=== PATIENT | male | born 1965 | race Caucasian/White ===

== ENCOUNTER 2019-02-08 23:01 | Emergency (ER) | payer OTHER ==
[~2019-02-08] VITALS: Ht 177.8 cm; Wt 108.9 kg
[2019-02-08 23:05] VITALS: BP 140/89
[2019-02-08] MEDS ORDERED: LIDOCAINE 2%/EPI 1:100,000 20 ML VIAL. IJ ONE (23:45)
[2019-02-08] MEDS ORDERED: NEOMY/BACITR/POLYMYXIN OINT PACKET. TP ONE (23:45)
[2019-02-08] MEDS ORDERED: DIPHTH,PERTUSS(ACELL),TET TOX 0.5 ML DISP.SYRIN. VAX IM ONE (23:45)
--- NOTE | 2019-02-08 23:45 | PHYS DOC ---
Adult General Chief Complaint Chief Complaint: MECHANICAL FALL HPI HPI Patient is a 53 year old male that presents with a laceration. Patient states this evening around 10:00 he went outside because he is having a coughing spell. During this coughing spell he started becoming lightheaded and dizzy proceeded to pass out. Upon passing out. His head on his deck. Patient's son heard him fall and went outside and noticed his dad had a episode lost consciousness. This episode lasted about 1 minute until his dad was able to answer questions appropriately. Currently the patient denies any pain at this time. He states this is happened in the past but is never needed to be checked out because he didn't have any lacerations previously. He currently denies any chest pain, shortness of breath, lightheadedness, dizziness or focal neurological deficits.[] Review of Systems Review of Systems Constitutional: Denies fever or chills [] Eyes: Denies redness or eye pain [] HENT: Reports laceration to head, denies nasal congestion or sore throat [] Respiratory: Denies cough or shortness of breath [] Cardiovascular: Denies chest pain or palpitations[] GI: Denies abdominal pain, nausea, vomiting [] : Denies dysuria or hematuria [] Musculoskeletal: Denies back pain or joint pain [] Integument: Reports skin lesion to knee and foot, denies rash [] Neurologic: Denies headache, lightheadedness, dizziness, focal weakness or sensory changes [] Complete systems were reviewed and found to be within normal limits, except as documented in this note. Current Medications Current Medications Current Medications Medications (Trade) Dose Ordered Sig/Rayo Start Time Stop Time Status Last Admin Dose Admin Diphtheria/ Tetanus/Acell Pertussis (Boostrix) 0.5 ml ONCE ONCE 02/08/19 23:45 02/08/19 23:46 DC 02/08/19 23:48 0.5 ML Lidocaine/ Epinephrine (LIDOCAINE 2%-EPI 1:100,000 multi-dose) 20 ml 1X ONCE 02/08/19 23:45 02/08/19 23:46 DC 02/08/19 23:45 20 ML Neomycin/ Polymyxin/ Bacitracin (Triple Antibiotic Ointment) 1 pkt 1X ONCE 02/08/19 23:45 02/08/19 23:46 DC 02/08/19 23:48 1 PKT Allergies Allergies Allergies Coded Allergies Type Severity Reaction Last Updated Verified No Known Drug Allergies 02/08/19 No Physical Exam Physical Exam Constitutional: Well developed, well nourished, no acute distress. [] HENT: Normocephalic, 5 cm laceration to the occipital region, bilateral external ears normal, tympanic membranes clear bilaterally, oropharynx moist, no laceration to tongue. [] Eyes: PERRLA, EOMI, injected conjunctiva bilaterally, no discharge. [] Neck: Normal range of motion, no tenderness. [] Cardiovascular:Heart rate regular rhythm, no murmur [] Lungs & Thorax: Bilateral breath sounds clear to auscultation, no rhonchi rales or wheezes [] Abdomen: Bowel sounds normal, soft, no tenderness. [] Skin: 2 cm abrasions to left tibial tuberosity and left dorsal foot, warm, dry, no erythema, no rash. [] Back: No tenderness, no CVA tenderness. [] Extremities: No tenderness, no cyanosis, no edema. [] Neurologic: Alert and oriented X 3, normal motor function, normal sensory function, no focal deficits noted, cranial nerves II through XII grossly intact bilaterally. [] Psychologic: Affect normal, mood normal. [] Current Patient Data Vital Signs Vital Signs Date Time Temp Pulse Resp B/P (MAP) Pulse Ox O2 Delivery O2 Flow Rate FiO2 02/08/19 23:05 98.6 121 19 140/89 (106) 95 Room Air 98.6 EKG EKG [] Radiology/Procedures Radiology/Procedures [] Course & Med Decision Making Course & Med Decision Making 53-year-old male presenting to the emergency department status post syncopal episode. Patient states that he had a coughing fit which causes him to have syncopal episode. He reports this happening in the past. He denied any chest pain or palpitations prior to the episode. Patient is not on blood thinners and physical exam demonstrated no focal neurological deficits therefore no head imaging was obtained. Patient was not orthostatic. Head laceration was then closed using gillian. Tibial and foot lacerations are cleaned and dressed with antibiotic ointment and sterile dressing.Patient stable for discharge with outpatient follow-up with PCP. Discussed findings and plan with patient and family, who acknowledge understanding and agreement. [] Dragon Disclaimer Dragon Disclaimer This electronic medical record was generated, in whole or in part, using a voice recognition dictation system. Departure Departure Impression: Primary Impression: Vasovagal syncope Additional Impression: Occipital scalp laceration Disposition: 01 HOME, SELF-CARE Condition: STABLE Patient Instructions: Concussion and Brain Injury, [id number], Laceration Care, Adult, [id number], Staple Care and Removal, Syncope, [id number] Laceration/Wound Repair Laceration/Wound Repair : Wound Location: head Wound's Depth, Shape: superficial Wound Length (cm): 5 Wound Explored: clean Irrigated w/ Saline (ccs): 50 Betadine Prep?: No (ChloraPrep) Anesthesia: Lidocaine w/ Epi (2% lidocaine with epi) Volume Anesthetic (ccs): 3 Wound Debrided: minimal Sterile Dressing Applied?: Yes Splint Applied?: No Sling Applied?: No Progress Time out performed. Hand hygiene preformed. 3 cc of lidocaine inserted and the wound. ChloraPrep used to really clean wound. 8 gillian inserted into the scalp with adequate closure. Sterile dressing and antibiotic ointment provided to wound. Problem Qualifiers Additional Impression: Occipital scalp laceration Encounter type: initial encounter Qualified Codes: S01.01XA - Laceration without foreign body of scalp, initial encounter SUNITHA VAUGHN DO Feb 08, 2019 23:45
== END 2019-02-09 01:15 | disposition home or self-care (01) ==
LOC: ER 23:01
DX: S01.01XA Laceration without foreign body of scalp, initial encounter (principal); R55 Syncope and collapse; W18.09XA Striking against other object with subsequent fall, initial encounter; Y93.89 Activity, other specified; Y92.89 Other specified places as the place of occurrence of the external cause; Y99.8 Other external cause status
CPT/HCPCS: 12002; 90471; 90715; 99283; J3490

== ENCOUNTER 2019-02-19 14:31 | Emergency (ER) | payer OTHER ==
[~2019-02-19] VITALS: Ht 182.9 cm; Wt 108.9 kg
[2019-02-19] MEDS ORDERED: cloNIDine HCL 0.1 MG TABLET PO ONE (15:30)
--- NOTE | 2019-02-19 15:30 | PHYS DOC ---
Past Medical History Past Medical History: Hypertension (ANH CAIN) Past Surgical History: No Surgical History (ANH CAIN) Alcohol Use: Heavy Drug Use: None (ANH CAIN) Adult General Chief Complaint Chief Complaint: SUTURE/STAPLE REMOVAL [facility] HPI Patient is a 53 year old male presents to the ED for staple removal. Patient had 8 caroline placed to head 10 days ago. States that the wound is healing well. Patient also found to have a blood pressure of 225/110. Patient states that he has not been taking his blood pressure medication since August. Prior to that he had been taking them for years. Patient is unsure what he takes for his blood pressure medication. States he plans to follow up with his PCP this week after seeing his blood pressure reading. Reports no symptoms related to elevated BP. Denies drainage, fever, dehiscence, bleeding, headache, vision changes, nausea/vomiting, chest pain or shortness of breath. (ANH CAIN) Review of Systems Review of Systems Constitutional: Denies fever or chills [] Eyes: Denies change in visual acuity, redness, or eye pain [] HENT: Denies nasal congestion or sore throat [] Respiratory: Denies cough or shortness of breath [] Cardiovascular: No additional information not addressed in HPI [] GI: Denies abdominal pain, nausea, vomiting, bloody stools or diarrhea [] : Denies dysuria or hematuria [] Musculoskeletal: Denies back pain or joint pain [] Integument: Denies rash or skin lesions [] Neurologic: Denies headache, focal weakness or sensory changes [] All other systems were reviewed and found to be within normal limits, except as documented in this note. (ANH CAIN) Current Medications Current Medications Current Medications Medications (Trade) Dose Ordered Sig/Rayo Start Time Stop Time Status Last Admin Dose Admin Clonidine HCl (Catapres) 0.2 mg 1X ONCE 02/19/19 15:30 02/19/19 15:31 DC 02/19/19 15:56 0.2 MG (SUNITHA VAUGHN DO) Allergies Allergies Allergies Coded Allergies Type Severity Reaction Last Updated Verified No Known Drug Allergies 02/08/19 No (SUNITHA VAUGHN DO) Physical Exam Physical Exam Constitutional: Well developed, well nourished, no acute distress, non-toxic appearance. [] HENT: Normocephalic, atraumatic. 8 caroline intact to left posterior head. Eyes: PERRLA, EOMI, conjunctiva normal, no discharge. [] Neck: Normal range of motion, no tenderness, supple, no stridor. [] Cardiovascular:Heart rate regular rhythm, no murmur [] Lungs & Thorax: Bilateral breath sounds clear to auscultation [] Abdomen: Bowel sounds normal, soft, no tenderness, no masses, no pulsatile masses. [] Skin: Warm, dry, no erythema, no rash. [] Back: No tenderness, no CVA tenderness. [] Extremities: No tenderness, no cyanosis, no clubbing, ROM intact, no edema. [] Neurologic: Alert and oriented X 3, normal motor function, normal sensory function, no focal deficits noted. [] Psychologic: Affect normal, judgement normal, mood normal. [] (ANH CAIN) Current Patient Data Vital Signs Vital Signs Date Time Temp Pulse Resp B/P (MAP) Pulse Ox O2 Delivery O2 Flow Rate FiO2 02/19/19 15:56 100 222/122 02/19/19 15:00 98.2 20 98 Room Air 98.2 (SUNITHA VAUGHN DO) EKG EKG [] (ANH CAIN) Radiology/Procedures Radiology/Procedures [] (ANH CAIN) Course & Med Decision Making Course & Med Decision Making Pertinent Labs and Imaging studies reviewed. (See chart for details) []Caroline removed. No complications. Patient given 0.2 of clonidine in the ED and will re-evaluate after dose. Patient refused to stay for BP recheck due to dog being in the car. Will still give clonidine prescription. Patient signed AMA. Patient will be sent home with clonidine 0.1 with instructions to take if systolic greater than 185 and/or diastolic greater than 110. Patient states he will see his PCP this week. Discussed risks if he does not control his blood pressure including , disability and complications. Patient is aware and understands that he needs a follow-up this week. Discussed reasons to return to the ED. Patient understands and agrees with plan. AMA form signed. Discussed case with attending physician. Agrees with evaluation and plan. (ANH CAIN) Dragon Disclaimer Dragon Disclaimer This electronic medical record was generated, in whole or in part, using a voice recognition dictation system. (ANH CAIN) Departure Departure Impression: Primary Impression: Removal of caroline Additional Impressions: Hypertension Left against medical advice Disposition: AGAINST MEDICAL ADVICE Condition: STABLE Referrals: NO PCP (PCP) SUNITHA PINA MD Patient Instructions: Hypertension, Staple Care and Removal Scripts Clonidine Hcl (CLONIDINE HCL) 0.1 Mg Tablet 0.1 MG PO TID PRN for ELEVATED BP, SEE COMMENTS, #15 TAB Obtain Blood pressure cuff. Take blood pressure in morning, noon and night. Take 1 tablet PRN systolic BP over 185 or diastolic BP over 110. Return to ED if symptoms occur with elevated blood pressure. Prov: ANH CAIN 02/19/19 Attending Signature Attending Signature I have reviewed the PA/PAYROLL TECHNICIAN's note and plan of care. I was available for consultation as needed during the patient's visit in the emergency department. I agree with the clinical impression, plan, and disposition. (SUNITHA VAUGHN DO) Problem Qualifiers ANH CAIN Feb 19, 2019 15:30 SUNITHA VAUGHN DO Feb 20, 2019 00:44
[2019-02-19 15:56] VITALS: BP 222/122
[2019-02-19] MEDS ORDERED: CLON0.1T PO (15:59)
== END 2019-02-19 15:57 | disposition left against medical advice (07) ==
LOC: ER 14:31
DX: S01.81XD Laceration without foreign body of other part of head, subsequent encounter (principal); I10 Essential (primary) hypertension; F10.20 Alcohol dependence, uncomplicated; Y90.9 Presence of alcohol in blood, level not specified; X58.XXXD Exposure to other specified factors, subsequent encounter
CPT/HCPCS: 99282